=== PATIENT | female | born 1975 | race Caucasian/White ===

== ENCOUNTER 2016-08-13 09:10 | Emergency (ER) | payer OTHER ==
--- NOTE | ~2016-08-13 | US85 ---
[facility] A Service of [facility] RADIOLOGY TEXT RESULTS PATIENT: VILMA GUZMAN LOCATION: [place] : 75 UNIT #: [id number] AGE: [address]: Owen Collins MD SEX: F ORDER DR: [id number] [facility] [address] [place], [place] [address] [id number] E MR#: [id number] Acc #: [id number] NAME: VILMA GUZMAN : 1975 SEX: F STUDY DATE/TIME: 08/13/2016 9:51 UNIT: [place] ROOM: STUDY DESCRIPTION: [facility] [employer] Attending Physician: Owen Collins M.D. Ordering Physician: Owen Collins M.D. Primary Care Physician: [facility] MEDICAL IMAGING REPORT This report is preliminary unless electronic signature is present EXAM Left lower extremity venous ultrasound HISTORY Pain for 5 days. No trauma. No history of classic swelling, same amount of time period. Hypertension. Hyperlipidemia. No recent surgeries. TECHNIQUE Venous ultrasound examination of the left lower extremity was performed using grayscale, spectral Doppler and color flow Doppler imaging. FINDINGS The examination is negative. There is no evidence of left lower extremity deep venous thrombus from the groin to the lower calf. Visualized greater saphenous vein is also patent. IMPRESSION Negative examination. No evidence of left lower extremity deep venous thrombosis. Dictated by... Randall Rosas M.D. THIS IS AN ELECTRONICALLY VERIFIED REPORT Randall Rosas M.D. at 08/13/2016 3:49 PM BARBRA/dorota TD: 08/13/2016 11:59 JOB #: [id number] [facility] A Service [facility] RADIOLOGY TEXT RESULTS PATIENT: VILMA GUZMAN LOCATION: [facility] : 75 UNIT #: [id number] AGE: [address]: Owen Collins MD SEX: F ORDER DR: MEDICAL IMAGING REPORT Page 1 of 1 COPY
[~2016-08-13 09:10] MED LIST: MACROBID 100 M100 MG PO
== END 2016-08-13 11:30 | disposition home or self-care (01) ==
LOC: CED 09:10
DX: M79.605 Pain in left leg (principal); I10 Essential (primary) hypertension; Z79.899 Other long term (current) drug therapy
CPT/HCPCS: 93971; 99284

== ENCOUNTER → 2016-12-05 | Outpatient (CLI) | payer OTHER ==
--- NOTE | ~2016-12-05 | EKG ---
PATIENT: VILMA GUZMAN UNIT #: [id number] Ventricular Rate: 53 BPM Atrial Rate: 53 BPM P-R Interval: 118 ms QRS Duration: 88 ms Q-T Interval: 472 ms QTC Calculation(Bezet): 442 ms P [place]: 41 degrees Calculated R [place]: 19 degrees Calculated T [place]: 17 degrees Diagnosis Line: Sinus bradycardia Diagnosis Line: Borderline ECG Diagnosis Line: No previous ECGs available Diagnosis Line: Confirmed by ZULEMA JIMENEZ MD ([id number]) on Diagnosis Line: 12/06/2016 4:41:37 PM INTERPRETING MD: MYRNA
--- NOTE | ~2016-12-05 | CR63 ---
[facility] A Service of [facility] RADIOLOGY TEXT RESULTS PATIENT: VILMA GUZMAN LOCATION: [facility] : 75 UNIT #: [id number] AGE: [address]: Yong Gunderson MD SEX: F ORDER DR: [id number] [facility] [address] [place], [place] [address] [id number] O MR#: [id number] Acc #: [id number] NAME: VILMA GUZMAN : 1975 SEX: F STUDY DATE/TIME: 12/05/2016 12:00 UNIT: [facility] ROOM: STUDY DESCRIPTION: CR Chest 2 View Attending Physician: Yong Gunderson M.D. Referring Physician: Yong Gunderson M.D. Ordering Physician: Yong Gunderson M.D. Primary Care Physician: [facility] MEDICAL IMAGING REPORT This report is preliminary unless electronic signature is present EXAM Two view chest two-view dated 12/05/2016. COMPARISON None. HISTORY Preop evaluation for left knee medial meniscal tear. Hypertensive. FINDINGS Two views of the chest were obtained. PA and lateral examination of the chest upright shows a good expansion of the parenchyma with a normal distribution of the pulmonary vascularity. There is no indication of congestion, effusion, infiltrate, tumor, or nodular density. The pleural reflections and diaphragmatic contours are normal. The cardiac silhouette and mediastinal anatomy is within normal limits. IMPRESSION Normal chest. Dictated by... Arlin Harding M.D. THIS IS AN ELECTRONICALLY VERIFIED REPORT Arlin Harding M.D. at 12/06/2016 5:24 PM CPR/ea TD: 12/05/2016 14:23 JOB #: [id number] [facility] A Service of [facility] RADIOLOGY TEXT RESULTS PATIENT: VILMA GUZMAN LOCATION: [facility] : 75 UNIT #: [id number] AGE: [address]: Yong Gunderson MD SEX: F ORDER DR: MEDICAL IMAGING REPORT Page 1 of 1 COPY
[2016-12-05 11:52] LABS: HEMATOCRIT 42.9 % (35.0-45.0); HEMOGLOBIN 14.7 gm/dL (12.0-16.0); MEAN CELL VOLUME 90.4 FL (83-96); MEAN CORPUSCULAR HGB CONC 34.3 g/dL (30-36); RED BLOOD COUNT 4.75 X10e (3.90-5.30); RED CELL DISTRIBUTION WIDTH 13.8 % (11.0-15.5); URINE APPEARANCE CLEAR; URINE BILIRUBIN NEG (NEG); URINE BLOOD NEG (NEG); URINE COLOR YELLOW; URINE GLUCOSE NEG (NEG); URINE KETONE NEG (NEG); URINE LEUKOCYTE ESTERASE NEG (NEG); URINE NITRATE NEG (NEG); URINE PH 6.5 (5-8); URINE PROTEIN NEG (NEG); URINE SPECIFIC GRAVITY 1.019 (1.003-1.035); URINE UROBILINOGEN 0.2 MG/DL (NEG); WHITE BLOOD COUNT 9.6 X10e3 (4.0-10.5)
[2016-12-05 11:58] LABS: CULTURE INDICATED? NO
[2016-12-05 12:14] LABS: BUN/CREATININE RATIO 16.66; CALCIUM SERUM 9.3 mg/dL (8.4-10.2); CREATININE SERUM 0.9 mg/dL (0.6-1.4); GLOM FILT RATE Estimated 79.5 mL/min (>60)
== END | disposition home or self-care (01) ==
LOC: CLAB 11:04
PROVIDERS: Orthopaedic Surgery
DX: Z01.818 Encounter for other preprocedural examination (principal); S83.242A Other tear of medial meniscus, current injury, left knee, initial encounter
CPT/HCPCS: 36415; 71020; 80048; 81003; 85027; 93005